=== PATIENT | female | born 1950 | race Caucasian/White ===

== ENCOUNTER 2017-04-14 09:44 | Outpatient (CLI) | payer MEDICARE ==
[2017-04-14 13:51] LABS: BASOPHILS # (AUTO) 0.1 10^3/uL (0.0-0.1); BASOPHILS % (AUTO) 2.2 %; EOSINOPHILS # (AUTO) 0.2 10^3/uL (0.0-0.7); HCT - HEMATOCRIT 36.5 % (37.0-47.0); HGB - HEMOGLOBIN 12.6 g/dL (12.0-16.0); LYMPHOCYTES % (AUTO) 28.9 %; MEAN CORPUSCULAR HEMOGLOBIN 37.2 pg (27.0-31.0); MEAN CORPUSCULAR HGB CONC 34.5 g/dL (32.0-36.0); MEAN CORPUSCULAR VOLUME 107.8 fL (81.0-99.0); MEAN PLATELET VOLUME 10.2 fL (7.9-10.8); MONOCYTES # (AUTO) 0.3 10^3/uL (0.0-1.0); MONOCYTES % (AUTO) 9.1 %; NEUTROPHILS # (AUTO) 1.9 10^3/uL (1.5-6.6); NEUTROPHILS % (AUTO) 54.8 %; RED BLOOD COUNT 3.39 10^6/uL (4.20-5.40); UNCORRECTED WHITE BLOOD COUNT 3.5 x10^3/uL; WHITE BLOOD COUNT 3.5 x10^3/uL (4.8-10.8)
[2017-04-14 14:07] LABS: ALBUMIN/GLOBULIN RATIO 1.5 (1.0-2.2); BILIRUBIN,TOTAL 0.6 mg/dL (0.2-1.0); BUN - BLOOD UREA NITROGEN 12 mg/dL (6-20); CALCIUM 9.1 mg/dL (8.5-10.3); CARBON DIOXIDE - CO2 28 mmol/L (21-32); CHLORIDE 104 mmol/L (101-111); CHOL/HDL RATIO 2.3 (<4.4); CHOLESTEROL 170 mg/dL; CREATININE 0.6 mg/dL (0.4-1.0); GFR - MDRD 99 (>89); GLUCOSE 98 mg/dL (70-100); HDL CHOLESTEROL 74 mg/dL; LDL/HDL RATIO 1.1 (<4.4); SODIUM 138 mmol/L (135-145); TOTAL PROTEIN 7.1 g/dL (6.7-8.2); TRIGLYCERIDES 71 mg/dL; VLDL CHOLESTEROL 14 mg/dL
== END 2017-04-14 23:59 | disposition home or self-care (01) ==
LOC: LAB.WCP 09:44
PROVIDERS: ATTEND Physician Assistant Medical
DX: E78.5 Hyperlipidemia, unspecified (principal); Z78.0 Asymptomatic menopausal state; E03.9 Hypothyroidism, unspecified; I48.91 Unspecified atrial fibrillation; Z79.899 Other long term (current) drug therapy; J44.9 Chronic obstructive pulmonary disease, unspecified
CPT/HCPCS: 36415; 80053; 80061; 84443; 85025

== ENCOUNTER 2017-08-29 11:21 | Outpatient (CLI) | payer MEDICARE ==
--- NOTE | 2017-08-30 17:07 | Mammography Report ---
DIGITAL SCREENING MAMMOGRAM: 08/29/2017 CLINICAL INDICATION: A 67-year-old for screening. COMPARISON: 02/2016, 08/2014, 01/2012. TECHNIQUE: Routine CC and MLO projections were obtained of the breasts. The breasts again demonstrate heterogeneously dense fibroglandular parenchyma bilaterally. Circumscr ibed nodule in the anterior right breast is stable. Coarse and punctate, typically benign calcificat ions are present. No suspicious masses, clustered microcalcifications, or regions of architectural d istortion are identified. IMPRESSION: BENIGN FINDINGS. RECOMMENDATION: ROUTINE ANNUAL SCREENING UNLESS OTHERWISE CLINICALLY INDICATED. BIRADS CATEGORY: 2, BENIGN FINDINGS. STANDARD QUALIFYING STATEMENTS 1. This examination was reviewed with the aid of Computed-Aided Detection (CAD). 2. A negative or benign imaging report should not delay biopsy if clinically suspicious findings are present. Consider surgical consultation if warranted. More than 5% of cancers are not identified b y imaging. 3. Dense breasts may obscure an underlying neoplasm. JOB #: [id number] EXT JOB #:[id number]
== END 2017-08-29 11:22 | disposition home or self-care (01) ==
LOC: DI 11:21
PROVIDERS: ATTEND Physician Assistant Medical
DX: Z12.31 Encounter for screening mammogram for malignant neoplasm of breast (principal)
CPT/HCPCS: 77067

== ENCOUNTER 2017-10-04 10:01 | Outpatient (CLI) | payer MEDICARE ==
--- NOTE | 2017-10-04 14:52 | DEXA Report ---
DEXA SCAN: 10/04/2017 CLINICAL INDICATION: Osteoporosis. TECHNIQUE: Dual energy x-ray absorptiometry (DXA) was performed on a [employer] system. Regions measured are the AP spine, femoral neck, and, if needed, forearm. COMPARISON: 09/30/2016. In accordance with the International Society for Clinical Densitometry (ISCD) guidelines, data from previous exams may be reanalyzed using current recommendations and techniques. This is done to allow a more accurate basis for comparison with the current study. FINDINGS LUMBAR SPINE DATA: REGION BMD (g/cm/cm) T-SCORE Z-SCORE L1 0.847 -2.4 -1.0 L2 0.848 -2.9 -1.5 L3 1.135 -0.5 0.9 L4 1.057 -1.2 0.2 TOTAL 0.985 -1.6 -0.2 NOTE: All evaluable vertebrae are used for classification. HIP DATA: REGION BMD (g/cm/cm) T-SCORE Z-SCORE Neck 0.644 -2.8 -1.4 TOTAL 0.600 -3.2 -2.0 NOTE: The femoral neck or total proximal femur, whichever is lowest, is used for classification. DXA RESULTS SUMMARY: Spine SCAN DATE AGE BMD T-SCORE BMD CHANGE VS BASELINE BMD CHANGE VS PREVIOUS 10[age]04/[age] 0[age]985 -- -0.010 -1.0 09/30/2016 [age] 0[age]995 -- -- -- * Denotes significant change at the 95% confidence level. Denotes dissimilar scan types or analysis methods. DXA RESULTS SUMMARY: Total Hip SCAN DATE AGE BMD T-SCORE BMD CHANGE VS BASELINE BMD CHANGE VS PREVIOUS 10/04/2017 [age] 0.600 -- 0.007 1.2 09/30/2016 [age] 0[age]593 -- -- -- * Denotes significant change at the 95% confidence level. Denotes dissimilar scan types or analysis methods. IMPRESSION 1. THE WHO CLASSIFICATION BASED ON THE INTERNATIONAL REFERENCE STANDARD IS OSTEOPOROSIS AND FRACTURE RISK IS HIGH. 2. THERE HAS BEEN NO STATISTICALLY SIGNIFICANT INTERVAL CHANGE FROM 09/30/2016. RECOMMENDATION: Patients with diagnosis of osteoporosis or osteopenia should have regular bone mineral density assessment. For those eligible for Medicare, routine testing is allowed once every 2 years. Testing frequency can be increased for patients who have rapidly progressing disease or for those who are receiving medical therapy to restore bone mass. COMMENT: World Health Organization (WHO) definitions for osteoporosis and osteopenia: NORMAL BMD: T-score at -1.0 or higher, fracture risk is low. OSTEOPENIA BMD: T-score between -1.0 and -2.5, fracture risk is increased. OSTEOPOROSIS BMD: T-score at -2.5 or lower, fracture risk high. National Osteoporosis Foundation recommends: 1. Obtain adequate dietary calcium (at least 1200 mg per day) and vitamin D (400 -800 international units per day). 2. Participate, as appropriate, in regular weightbearing and muscle- strengthening exercise. 3. Avoid tobacco use and reduce alcohol and caffeine intake. 4. For more detailed information see the website at www.NOF.org. MTDD
== END 2017-10-04 10:02 | disposition home or self-care (01) ==
LOC: DI 10:01
PROVIDERS: ATTEND Physician Assistant Medical
DX: M81.0 Age-related osteoporosis without current pathological fracture (principal)
CPT/HCPCS: 77080

== ENCOUNTER 2017-12-06 08:00 | Outpatient (CLI) | payer MEDICARE | END 2017-12-06 08:01 | disposition home or self-care (01) | LOC: LAB.R 08:00 | PROVIDERS: ATTEND Physician Assistant Medical | DX: N39.0 Urinary tract infection, site not specified (principal) | CPT/HCPCS: 87077; 87086 ==

== ENCOUNTER 2017-12-18 14:30 | Outpatient (CLI) | payer MEDICARE | END 2017-12-18 14:31 | disposition home or self-care (01) | LOC: LAB.WCP 14:30 | PROVIDERS: ATTEND Family Medicine | DX: N39.0 Urinary tract infection, site not specified (principal) | CPT/HCPCS: 87077; 87086 ==

== ENCOUNTER 2017-12-27 11:21 | Outpatient (CLI) | payer MEDICARE ==
[2017-12-27 19:07] LABS: BILIRUBIN,URINE NEGATIVE (NEGATIVE); GLUCOSE, URINE (UA) NEGATIVE (NEGATIVE); KETONES,URINE (UA) NEGATIVE (NEGATIVE); LEUKOCYTE ESTERASE, URINE NEGATIVE (NEGATIVE); NITRITE,URINE NEGATIVE (NEGATIVE); OCCULT BLOOD,URINE NEGATIVE (NEGATIVE); PROTEIN,URINE NEGATIVE (NEGATIVE); UROBILINOGEN,URINE 0.2 (NORMAL) E.U./dL (NORMAL)
[2017-12-27 19:18] LABS: BACTERIA,URINE Few /HPF (None Seen); CLARITY,URINE CLEAR (CLEAR); RBC,URINE 0-5 /HPF (0-5); SQUAMOUS EPITHELIAL CELL,UR RARE Squamous (<= Few)
== END 2017-12-27 11:22 | disposition home or self-care (01) ==
LOC: LAB.WCP 11:21
PROVIDERS: ATTEND Family Medicine
DX: N39.0 Urinary tract infection, site not specified (principal)
CPT/HCPCS: 81001; 87086

== ENCOUNTER 2018-01-10 10:10 | Outpatient (CLI) | payer MEDICARE | END 2018-01-10 10:11 | disposition home or self-care (01) | LOC: LAB.WCP 10:10 | PROVIDERS: ATTEND Family Medicine | DX: N39.0 Urinary tract infection, site not specified (principal) | CPT/HCPCS: 87086 ==

== ENCOUNTER 2018-02-02 08:00 | Outpatient (CLI) | payer MEDICARE ==
[2018-02-02 14:10] LABS: BILIRUBIN,URINE NEGATIVE (NEGATIVE); CLARITY,URINE CLEAR (CLEAR); GLUCOSE, URINE (UA) NEGATIVE (NEGATIVE); KETONES,URINE (UA) NEGATIVE (NEGATIVE); LEUKOCYTE ESTERASE, URINE SMALL (NEGATIVE); NITRITE,URINE POSITIVE (NEGATIVE); OCCULT BLOOD,URINE NEGATIVE (NEGATIVE); PROTEIN,URINE NEGATIVE (NEGATIVE); UROBILINOGEN,URINE 0.2 (NORMAL) E.U./dL (NORMAL)
[2018-02-02 14:19] LABS: BACTERIA,URINE Many /HPF (None Seen); RBC,URINE 0-5 /HPF (0-5); SQUAMOUS EPITHELIAL CELL,UR RARE Squamous (<= Few)
== END 2018-02-02 08:01 | disposition home or self-care (01) ==
LOC: LAB.WCP 08:00
PROVIDERS: ATTEND Physician Assistant
DX: R82.90 Unspecified abnormal findings in urine (principal)
CPT/HCPCS: 81001; 87077; 87086

== ENCOUNTER 2018-04-06 08:00 | Outpatient (CLI) | payer MEDICARE ==
[2018-04-06 13:12] LABS: BASOPHILS # (AUTO) 0.1 10^3/uL (0.0-0.1); BASOPHILS % (AUTO) 1.7 %; EOSINOPHILS # (AUTO) 0.3 10^3/uL (0.0-0.7); EOSINOPHILS % (AUTO) 7.5 %; HGB - HEMOGLOBIN 13.1 g/dL (12.0-16.0); LYMPHOCYTES # (AUTO) 1.1 10^3/uL (1.5-3.5); LYMPHOCYTES % (AUTO) 28.1 %; MEAN CORPUSCULAR HEMOGLOBIN 32.2 pg (27.0-31.0); MEAN CORPUSCULAR HGB CONC 33.6 g/dL (32.0-36.0); MEAN CORPUSCULAR VOLUME 95.9 fL (81.0-99.0); MEAN PLATELET VOLUME 9.5 fL (7.9-10.8); MONOCYTES # (AUTO) 0.4 10^3/uL (0.0-1.0); MONOCYTES % (AUTO) 9.1 %; NEUTROPHILS # (AUTO) 2.1 10^3/uL (1.5-6.6); NEUTROPHILS % (AUTO) 53.6 %; PLT - PLATELET COUNT 212 10^3/uL (130-450); RED BLOOD COUNT 4.06 10^6/uL (4.20-5.40); RED CELL DISTRIBUTION WIDTH 14.9 % (12.0-15.0)
[2018-04-06 13:40] LABS: ALBUMIN 4.1 g/dL (3.2-5.5); ALBUMIN/GLOBULIN RATIO 1.5 (1.0-2.2); ALKALINE PHOSPHATASE 48 IU/L (42-121); ALT ALANINE AMINOTRANSFERASE 24 IU/L (10-60); AST ASPARTATE AMINOTRANSFERASE 25 IU/L (10-42); BILIRUBIN,TOTAL 0.7 mg/dL (0.2-1.0); BUN - BLOOD UREA NITROGEN 11 mg/dL (6-20); CARBON DIOXIDE - CO2 27 mmol/L (21-32); CHLORIDE 107 mmol/L (101-111); CHOL/HDL RATIO 2.5 (<4.4); CHOLESTEROL 190 mg/dL; CREATININE 0.8 mg/dL (0.4-1.0); GFR - MDRD 71 (>89); GLUCOSE 97 mg/dL (70-100); HDL CHOLESTEROL 76 mg/dL; LDL CHOLESTEROL,CALCULATED 102 mg/dL; LDL/HDL RATIO 1.3 (<4.4); SODIUM 141 mmol/L (135-145); TOTAL PROTEIN 6.9 g/dL (6.7-8.2); VLDL CHOLESTEROL 12 mg/dL
== END 2018-04-06 08:01 | disposition home or self-care (01) ==
LOC: LAB.WCP 08:00
PROVIDERS: ATTEND Physician Assistant Medical
DX: J44.9 Chronic obstructive pulmonary disease, unspecified (principal); I48.91 Unspecified atrial fibrillation; E78.5 Hyperlipidemia, unspecified; E03.9 Hypothyroidism, unspecified
CPT/HCPCS: 36415; 80053; 80061; 83721; 84443; 85025

== ENCOUNTER 2018-05-09 08:00 | Outpatient (CLI) | payer MEDICARE ==
[2018-05-09 18:50] LABS: BILIRUBIN,URINE NEGATIVE (NEGATIVE); GLUCOSE, URINE (UA) NEGATIVE (NEGATIVE); KETONES,URINE (UA) NEGATIVE (NEGATIVE); LEUKOCYTE ESTERASE, URINE SMALL (NEGATIVE); NITRITE,URINE NEGATIVE (NEGATIVE); OCCULT BLOOD,URINE NEGATIVE (NEGATIVE); PH,URINE 6.5 PH (5.0-7.5); PROTEIN,URINE NEGATIVE (NEGATIVE); UROBILINOGEN,URINE 0.2 (NORMAL) E.U./dL (NORMAL)
[2018-05-09 19:06] LABS: CLARITY,URINE CLEAR (CLEAR)
[2018-05-09 19:07] LABS: BACTERIA,URINE None Seen /HPF (None Seen); MUCUS,URINE Few Strands; RBC,URINE 0-5 /HPF (0-5); SQUAMOUS EPITHELIAL CELL,UR RARE Squamous (<= Few)
== END 2018-05-09 08:01 | disposition home or self-care (01) ==
LOC: LAB.WCP 08:00
PROVIDERS: ATTEND Physician Assistant Medical
DX: N39.0 Urinary tract infection, site not specified (principal)
CPT/HCPCS: 81001; 87086

== ENCOUNTER 2018-07-29 09:17 | Emergency (ER) | payer MEDICARE ==
[2018-07-29] MEDS ORDERED: DEXAMETHASONE 10 MG/ML VIAL PO STA (09:49)
[2018-07-29] MEDS ORDERED: HYDROmorphone 1 MG/ML CARPUJECT IM STA (09:49)
[2018-07-29] MEDS ORDERED: ONDANSETRON ODT 4 MG TABLET TL STA (09:49)
[2018-07-29] MEDS ORDERED: CHERRY SYRUP 10 ML UDC PO ONE (09:52)
--- NOTE | 2018-07-29 09:52 | ED Physician Documentation ---
PD HPI BACK PAIN - Stated complaint Stated Complaint: L SIDE LEG PX - Chief complaint Chief Complaint: Back Pain - History obtained from History obtained from: Patient, Family - History of Present Illness Timing - onset: How many days ago (2) Timing - duration: Days (2) Timing - details: Gradual onset, Still present Location: Lower, Left Quality: Pain, Spasm, Sharp, Similar to prior episodes Associated symptoms: Numbness. No: Fever, Weakness, Incontinent of urine, Unable to urinate, Hematuria, Incontinent of stool Improves with: Rest Worsened by: Movement Contributing factors: Other (standing on uneven ground/walking) Similar symptoms before: Diagnosis (sciatica) Recently seen: Clinic - Additional information Additional information: 68-year-old female with a remote tailbone injury has had sciatica since her early 20s. She will have exacerbation of her symptoms if she is on her feet for too long. She indicates that this week she was on her feet quite a bit on Monday and then went walking on . She did go into see the chiropractor as well. She was much worse following the activity. This morning she is unable to get relief of her pain she has 10 out of 10 pain and radiation of the pain down her leg. Review of Systems Constitutional: denies: Fever Eyes: denies: Decreased vision Ears: denies: Ear pain Nose: denies: Congestion Throat: denies: Sore throat Cardiac: denies: Chest pain / pressure, Palpitations Respiratory: denies: Dyspnea, Cough GI: reports: Constipation. denies: Abdominal Pain, Nausea, Vomiting : denies: Dysuria, Frequency Skin: denies: Rash Musculoskeletal: reports: Back pain, Extremity pain. denies: Neck pain Neurologic: reports: Numbness. denies: Generalized weakness, Focal weakness PD PAST MEDICAL HISTORY - Present Medications Home Medications: Ambulatory Orders Medication Instructions Recorded Confirmed Acetaminophen [Tylenol Extra 07/29/18 Strength] Atorvastatin [Lipitor] 07/29/18 Calcium Carbonate/Vitamin D3 07/29/18 [Calcium 600-Vit D3 400 Tablet] Cetirizine [ZyrTEC] 07/29/18 Ciclopirox [Pen[place]] 07/29/18 Cyanocobalamin (Vitamin B-12) 07/29/18 [Vitamin B-12] Cyclobenzaprine [Flexeril] 10 mg PO TID PRN #20 tablet 07/29/18 Diltiazem HCl [Diltiazem ER] 07/29/18 Flecainide [Tambocar] 07/29/18 Fluticasone [Flonase] 07/29/18 Guaifenesin/Dextromethorphan 07/29/18 [Mucinex Dm ER 1,200-60 mg Tab] HYDROcod/ACETAM 5/325 [[place] 5/325] 1 - 2 ea PO Q6H PRN #15 tablet 07/29/18 Lactobacillus Acidophilus 07/29/18 [Probiotic Acidophilus] Levothyroxine [Synthroid] 07/29/18 Melatonin 07/29/18 Warfarin [Coumadin] 07/29/18 tiZANidine [Zanaflex] 2 mg PO TID PRN 07/29/18 07/29/18 - Allergies Allergies/Adverse Reactions: Allergies Allergy/AdvReac Type Severity Reaction Status Date / Time Sulfa (Sulfonamide AdvReac Anxiety Verified 07/29/18 09:36 Antibiotics) PD ED PE NORMAL - Vitals Vital signs reviewed: Yes (normal ) - General General: Alert and oriented X 3, No acute distress, Well developed/nourished - HEENT HEENT: Atraumatic, PERRL, EOMI - Respiratory Respiratory: No respiratory distress - Back Back: No CVA TTP, Other (There is midline tenderness to the lower lumbar spine and sacrum and radiation of tenderness to the left sciatic notch) - Derm Derm: Normal color, Warm and dry, No rash - Extremities Extremities: No deformity, No edema - Neuro Neuro: Alert and oriented X 3, elevator inspector 2-12 intact, No motor deficit, No sensory deficit, Normal speech Eye Opening: Spontaneous Motor: Obeys Commands Verbal: Oriented GCS Score: 15 - Psych Psych: Normal mood, Normal affect Results - Vitals Vitals: Vital Signs - 24 hr 07/29/18 09:30 Temperature 36.2 C L Heart Rate 88 Respiratory 16 Rate Blood Pressure 116/67 O2 Saturation 99 Oxygen O2 Source Room air PD MEDICAL DECISION MAKING - ED course Complexity details: considered differential, d/w patient, d/w family ED course: 68-year-old female with a long history of sciatica has developed worsening of her symptoms after being on her feet for longer than she is used to. She has acute exacerbation of chronic pain and she is administered dexamethasone 10 mg orally and treated for pain of a 10 out of 10 in nature with the use of a milligram of Dilaudid IM and 4 mg of Zofran sublingual.. - Sepsis Event Vital Signs: Vital Signs - 24 hr 07/29/18 09:30 Temperature 36.2 C L Heart Rate 88 Respiratory 16 Rate Blood Pressure 116/67 O2 Saturation 99 Oxygen O2 Source Room air Departure - Departure Disposition: Home, Self Care Clinical Impression: Sciatica Qualifiers: Laterality: left Qualified Code(s): M54.32 - Sciatica, left side Condition: Stable Instructions: ED Sciatica Follow-Up: Paula Kaminski PA-C [Primary Care Provider] - Prescriptions: Cyclobenzaprine [Flexeril] 10 mg PO TID PRN #20 tablet PRN Reason: Spasms HYDROcod/ACETAM 5/325 [[place] 5/325] 1 - 2 ea PO Q6H PRN #15 tablet PRN Reason: Pain
[2018-07-29 10:19] VITALS: BP 111/65
== END 2018-07-29 10:19 | disposition home or self-care (01) ==
LOC: ED 09:17
DX: M54.32 Sciatica, left side (principal)
CPT/HCPCS: 85610; 96372; 99283; A9270; J1170; Q0162

== ENCOUNTER 2018-08-14 11:56 | Outpatient (CLI) | payer MEDICARE ==
[2018-08-14 13:01] LABS: ALBUMIN 4.2 g/dL (3.2-5.5); ALBUMIN/GLOBULIN RATIO 1.6 (1.0-2.2); BILIRUBIN,TOTAL 0.4 mg/dL (0.2-1.0); CREATININE 0.6 mg/dL (0.4-1.0); TOTAL PROTEIN 6.9 g/dL (6.7-8.2)
== END 2018-08-14 11:57 | disposition home or self-care (01) ==
LOC: LAB 11:56
PROVIDERS: ATTEND Internal Medicine Gastroenterology
DX: Z79.01 Long term (current) use of anticoagulants (principal); G47.30 Sleep apnea, unspecified; R85.9 Unspecified abnormal finding in specimens from digestive organs and abdominal cavity; I48.91 Unspecified atrial fibrillation
CPT/HCPCS: 36415; 80053

== ENCOUNTER 2018-08-16 06:10 | Day surgery (SDC) | payer MEDICARE ==
[2018-08-16] MEDS ORDERED: SODIUM CHLORIDE 0.9% 0 ML ONE (06:35)
[2018-08-16 07:04] LABS: INR 2.8 (0.8-1.2); PT - PROTHROMBIN TIME 30.8 secs (9.9-12.6)
--- NOTE | 2018-08-16 07:04 | ANESTHESIA ---
Pre-Anesthesia VS, & Labs - Diagnosis positive cologuard - Procedure colonoscopy Vital Signs: Temp Pulse Resp BP Pulse Ox 36.4 C L 88 16 107/53 L 97 08/16/18 06:43 08/16/18 06:43 08/16/18 06:43 08/16/18 06:43 08/16/18 06:43 Height 5 ft 7 in Weight (kg) 66.7 kg Body Mass Index 24.4 - NPO >8 hours - Is Patient ?: Not Applicable - Lab Results Lab results reviewed: Yes Home Medications and Allergies Home Medications: Ambulatory Orders Medication Instructions Recorded Confirmed Cyclobenzaprine [Flexeril] 10 mg PO TID PRN #20 tablet 07/29/18 08/09/18 HYDROcod/ACETAM 5/325 [[place] 5/325] 1 - 2 ea PO Q6H PRN #15 tablet 07/29/18 08/09/18 Atorvastatin [Lipitor] 10 mg PO DAILY 08/09/18 08/09/18 Cetirizine [ZyrTEC] 10 mg PO DAILY 08/09/18 08/09/18 Flecainide [Tambocar] 50 mg PO DAILY MDD 2 08/09/18 08/09/18 Fluticasone [Flonase] 2 sprays GIANNA BID 08/09/18 08/09/18 Fluticasone/Salmeterol [Advair Hfa 2 puffs IH BID 08/09/18 08/09/18 115-21 Mcg Inhaler] Levothyroxine [Synthroid] 88 mcg PO QDAC 08/09/18 08/09/18 Warfarin Sodium [Coumadin] 7.5 mg PO .QTUES.QTHUR.QSAT 08/09/18 08/09/18 Warfarin Sodium [Coumadin] 10 mg PO .MON.WED.FRI.SUN 08/09/18 08/09/18 diltiaZEM CD [Cardizem Cd] 180 mg PO DAILY 08/09/18 08/09/18 Atorvastatin [Lipitor] 10 mg PO DAILY 08/09/18 Cetirizine [ZyrTEC] 10 mg PO DAILY 08/09/18 Flecainide [Tambocar] 50 mg PO DAILY MDD 2 08/09/18 Fluticasone [Flonase] 2 sprays GIANNA BID 08/09/18 Fluticasone/Salmeterol [Advair Hfa 115-21 Mcg Inhaler] 2 puffs IH BID 08/09/18 Levothyroxine [Synthroid] 88 mcg PO QDAC 08/09/18 Warfarin Sodium [Coumadin] 7.5 mg PO .QTUES.QTHUR.QSAT 08/09/18 Warfarin Sodium [Coumadin] 10 mg PO .MON.WED.FRI.SUN 08/09/18 diltiaZEM CD [Cardizem Cd] 180 mg PO DAILY 08/09/18 Allergies/Adverse Reactions: Allergies Allergy/AdvReac Type Severity Reaction Status Date / Time Sulfa (Sulfonamide AdvReac Anxiety Verified 08/09/18 10:57 Antibiotics) Anes History & Medical History - Anesthetic History Anesthesia Complications: reports: No previous complications Family history of Anesthesia Complications: Denies Family history of Malignant Hyperthermia: Denies - Medical History Cardiovascular: reports: High cholesterol, Atrial fibrillation Pulmonary: reports: Asthma, COPD, Sleep apnea Gastrointestinal: reports: GI bleed Urinary: reports: None Musculoskeletal: reports: Osteoarthritis, Osteoporosis, Chronic back pain Endocrine/Autoimmune: reports: HyPOthyroidism Skin: reports: None Smoking Status: Never smoker - Surgical History General: Colonoscopy Eyes Ears Nose Throat (EENT): Cataracts, Other Exam General: Alert, Oriented x3 Dental: Dentures full Upper, Dentures full Lower Mouth Openin Fingerbreadth Neck Mobility: Normal Mallampati classification: II Thyromental Distance: greater than 6 cm Respiratory: Lungs clear Cardiovascular: Normal S1, Normal S2 Mental/Cognitive Status: Alert/Oriented X3, Normal for patient Cognitive Status: Within normal limits Plan Anesthesia Type: MAC Consent for Procedure(s) Verified and Reviewed: Yes Code Status: Attempt Resuscitation ASA classification: 3-Severe systemic disease Is this case an emergency?: No
[2018-08-16] MEDS ORDERED: LACTATED RINGERS 1,000 ML IV ONE (07:18)
[2018-08-16] MEDS ORDERED: PROPOFOL 200 MG/20 ML VIAL IVP ONE (08:08)
[2018-08-16] MEDS ORDERED: LIDOCAINE-MPF 2% 5 ML VIAL IM ONE (08:08)
[2018-08-16 08:32] VITALS: BP 110/52
== END 2018-08-16 06:11 | disposition home or self-care (01) ==
LOC: SDS 06:10
PROVIDERS: ATTEND Internal Medicine Gastroenterology
PROC: 0DBN8ZZ Excision of Sigmoid Colon, Via Natural or Artificial Opening Endoscopic (ICD-10-PCS; principal; 2018-08-16 07:30)
DX: R19.5 Other fecal abnormalities (principal); D12.5 Benign neoplasm of sigmoid colon; R19.4 Change in bowel habit; G47.30 Sleep apnea, unspecified; I48.91 Unspecified atrial fibrillation; J45.909 Unspecified asthma, uncomplicated; J44.9 Chronic obstructive pulmonary disease, unspecified; E78.5 Hyperlipidemia, unspecified; Z79.01 Long term (current) use of anticoagulants
CPT/HCPCS: 36415; 45380; 85610; J7120

== ENCOUNTER 2019-02-13 08:00 | Outpatient (CLI) | payer MEDICARE | END 2019-02-13 23:59 | disposition home or self-care (01) | LOC: LAB.WCP 08:00 | PROVIDERS: ATTEND Physician Assistant Medical | DX: I48.91 Unspecified atrial fibrillation (principal); Z79.01 Long term (current) use of anticoagulants ==

== ENCOUNTER 2019-03-29 08:00 | Outpatient (CLI) | payer MEDICARE ==
[2019-03-29 12:33] LABS: INR 2.9 (0.8-1.2); PT - PROTHROMBIN TIME 32.2 secs (9.9-12.6)
[2019-03-29 12:58] LABS: ALBUMIN 3.8 g/dL (3.2-5.5); ALBUMIN/GLOBULIN RATIO 1.4 (1.0-2.2); BILIRUBIN,TOTAL 0.4 mg/dL (0.2-1.0); CALCIUM 8.6 mg/dL (8.5-10.3); CREATININE 0.7 mg/dL (0.4-1.0); TOTAL PROTEIN 6.5 g/dL (6.7-8.2)
== END 2019-03-29 23:59 | disposition home or self-care (01) ==
LOC: LAB.WCP 08:00
PROVIDERS: ATTEND Internal Medicine Gastroenterology
DX: R19.5 Other fecal abnormalities (principal); I48.91 Unspecified atrial fibrillation; G47.30 Sleep apnea, unspecified; Z79.01 Long term (current) use of anticoagulants
CPT/HCPCS: 36415; 80053; 85610

== ENCOUNTER 2019-04-12 08:00 | Outpatient (CLI) | payer MEDICARE | END 2019-04-12 23:59 | disposition home or self-care (01) | LOC: LAB.WCP 08:00 | PROVIDERS: ATTEND Family Medicine | DX: I48.91 Unspecified atrial fibrillation (principal); Z79.01 Long term (current) use of anticoagulants ==

== ENCOUNTER 2019-05-28 08:00 | Outpatient (CLI) | payer MEDICARE | END 2019-05-28 08:01 | disposition home or self-care (01) | LOC: LAB.WCP 08:00 | PROVIDERS: ATTEND Physician Assistant Medical | DX: I48.91 Unspecified atrial fibrillation (principal); Z79.01 Long term (current) use of anticoagulants ==

== ENCOUNTER 2019-07-09 08:00 | Outpatient (CLI) | payer MEDICARE | END 2019-07-09 23:59 | disposition home or self-care (01) | LOC: LAB.WCP 08:00 | PROVIDERS: ATTEND Physician Assistant | DX: I48.91 Unspecified atrial fibrillation (principal) ==

== ENCOUNTER 2019-08-06 08:00 | Outpatient (CLI) | payer MEDICARE | END 2019-08-06 23:59 | disposition home or self-care (01) | LOC: LAB.WCP 08:00 | PROVIDERS: ATTEND Physician Assistant Medical | DX: I48.91 Unspecified atrial fibrillation (principal); Z79.01 Long term (current) use of anticoagulants ==

== ENCOUNTER 2019-10-10 09:46 | Outpatient (CLI) | payer MEDICARE ==
--- NOTE | 2019-10-11 09:25 | Mammography Report ---
Reason: SCREENING MAMMOGRAM Procedure Date: 10/10/2019 Accession Number: [id number] / [id number] Procedure: ABE - Screening Mammo w/Andrea CPT Code: Final Report FULL RESULT: EXAM: Screening Mammo w/Andrea DATE: 10/10/2019 10:12 AM CLINICAL HISTORY: Screening encounter. TECHNIQUE: (B) - Bilateral CC, laterally exaggerated CC, MLO views were obtained. COMPARISON: 08/29/2017 through 02/14/2012. PARENCHYMAL PATTERN: (D) - The breast(s) demonstrate(s) heterogeneously dense fibroglandular parenchyma. FINDINGS: There are coarse typically benign calcifications as well as typically benign vascular calcifications. A right breast inferomedial retroareolar isodense nodule approximately 1.5 cm from the nipple demonstrates greater than 2 year stability with benign. This has reportedly been previously sonographically characterized as a simple cyst, mammographic appearance is compatible. There are no suspicious masses, calcifications, or areas of distortion. IMPRESSION: Benign findings. BI-RADS category 2. RECOMMENDATION: (ANNUAL) - Recommend routine annual screening mammography. BI-RADS CATEGORY: (2) - Benign Findings. STANDARD QUALIFYING STATEMENTS: 1. This examination was not reviewed with the aid of Computer-Aided Detection (CAD). 2. A negative or benign imaging report should not preclude biopsy if clinically suspicious findings are present. 3. Dense breasts may obscure an underlying neoplasm. 4. This examination was reviewed with the aid of 3D breast imaging (tomosynthesis).
== END 2019-10-10 09:47 | disposition home or self-care (01) ==
LOC: DI 09:46
DX: Z12.31 Encounter for screening mammogram for malignant neoplasm of breast (principal)
CPT/HCPCS: 77063; 77067

== ENCOUNTER 2019-12-26 08:00 | Outpatient (CLI) | payer MEDICARE | END 2019-12-26 23:59 | disposition home or self-care (01) | LOC: LAB.WCP 08:00 | PROVIDERS: ATTEND Physician Assistant Medical | DX: Z79.01 Long term (current) use of anticoagulants (principal); I48.91 Unspecified atrial fibrillation ==

== ENCOUNTER 2020-01-23 08:00 | Outpatient (CLI) | payer MEDICARE | END 2020-01-23 23:59 | disposition home or self-care (01) | LOC: LAB.WCP 08:00 | PROVIDERS: ATTEND Physician Assistant Medical | DX: I48.91 Unspecified atrial fibrillation (principal); Z79.01 Long term (current) use of anticoagulants ==

== ENCOUNTER 2020-02-20 08:00 | Outpatient (CLI) | payer MEDICARE | END 2020-02-20 23:59 | disposition home or self-care (01) | LOC: LAB.WCP 08:00 | PROVIDERS: ATTEND Physician Assistant Medical | DX: I48.91 Unspecified atrial fibrillation (principal); Z79.01 Long term (current) use of anticoagulants ==

== ENCOUNTER 2020-03-19 08:00 | Outpatient (CLI) | payer MEDICARE | END 2020-03-19 23:59 | disposition home or self-care (01) | LOC: LAB.WCP 08:00 | PROVIDERS: ATTEND Physician Assistant Medical | DX: I48.91 Unspecified atrial fibrillation (principal); Z79.01 Long term (current) use of anticoagulants ==

== ENCOUNTER 2020-04-10 07:38 | Outpatient (CLI) | payer MEDICARE ==
[2020-04-10 13:28] LABS: BASOPHILS # (AUTO) 0.1 10^3/uL (0.0-0.1); BASOPHILS % (AUTO) 1.1 %; EOSINOPHILS # (AUTO) 0.3 10^3/uL (0.0-0.7); EOSINOPHILS % (AUTO) 6.6 %; LYMPHOCYTES # (AUTO) 1.7 10^3/uL (1.5-3.5); LYMPHOCYTES % (AUTO) 35.9 %; MEAN CORPUSCULAR HEMOGLOBIN 30.9 pg (27.0-31.0); MEAN CORPUSCULAR HGB CONC 31.8 g/dL (32.0-36.0); MEAN CORPUSCULAR VOLUME 97.1 fL (81.0-99.0); MEAN PLATELET VOLUME 11.7 fL (7.9-10.8); MONOCYTES # (AUTO) 0.4 10^3/uL (0.0-1.0); MONOCYTES % (AUTO) 8.9 %; NEUTROPHILS # (AUTO) 2.2 10^3/uL (1.5-6.6); NEUTROPHILS % (AUTO) 47.3 %; PLT - PLATELET COUNT 219 10^3/uL (130-450); RED BLOOD COUNT 4.21 10^6/uL (4.20-5.40); RED CELL DISTRIBUTION WIDTH 14.8 % (12.0-15.0); WHITE BLOOD COUNT 4.7 x10^3/uL (4.8-10.8)
[2020-04-10 14:05] LABS: ALBUMIN 3.7 g/dL (3.2-5.5); ALBUMIN/GLOBULIN RATIO 1.3 (1.0-2.2); ALKALINE PHOSPHATASE 58 IU/L (42-121); ALT ALANINE AMINOTRANSFERASE 17 IU/L (10-60); AST ASPARTATE AMINOTRANSFERASE 16 IU/L (10-42); BILIRUBIN,TOTAL 0.6 mg/dL (0.2-1.0); BUN - BLOOD UREA NITROGEN 13 mg/dL (6-20); CALCIUM 8.9 mg/dL (8.5-10.3); CARBON DIOXIDE - CO2 27 mmol/L (21-32); CHLORIDE 105 mmol/L (101-111); CHOL/HDL RATIO 2.6 (<4.4); CHOLESTEROL 177 mg/dL; CREATININE 0.7 mg/dL (0.4-1.0); GLUCOSE 102 mg/dL (70-100); HDL CHOLESTEROL 67 mg/dL; LDL CHOLESTEROL,CALCULATED 97 mg/dL; LDL/HDL RATIO 1.4 (<4.4); SODIUM 140 mmol/L (135-145); TOTAL PROTEIN 6.6 g/dL (6.7-8.2); VLDL CHOLESTEROL 13 mg/dL
[2020-04-10 14:58] LABS: FREE T4 (FREE THYROXINE) 1.01 ng/dL (0.58-1.64)
== END 2020-04-10 23:59 | disposition home or self-care (01) ==
LOC: LAB.WCP 07:38
PROVIDERS: ATTEND Physician Assistant Medical
DX: I48.91 Unspecified atrial fibrillation (principal); E78.5 Hyperlipidemia, unspecified; E03.9 Hypothyroidism, unspecified; M89.9 Disorder of bone, unspecified
CPT/HCPCS: 36415; 80053; 80061; 83721; 84439; 84443; 85025

== ENCOUNTER 2020-05-14 08:00 | Outpatient (CLI) | payer MEDICARE | END 2020-05-14 23:59 | disposition home or self-care (01) | LOC: LAB.WCP 08:00 | PROVIDERS: ATTEND Physician Assistant Medical | DX: I48.91 Unspecified atrial fibrillation (principal); Z79.01 Long term (current) use of anticoagulants ==

== ENCOUNTER 2020-05-27 08:00 | Outpatient (CLI) | payer MEDICARE | END 2020-05-27 23:59 | disposition home or self-care (01) | LOC: LAB.WCP 08:00 | PROVIDERS: ATTEND Physician Assistant Medical | DX: I48.91 Unspecified atrial fibrillation (principal); Z79.01 Long term (current) use of anticoagulants ==

== ENCOUNTER 2020-06-05 10:31 | Outpatient (CLI) | payer MEDICARE | END 2020-06-05 23:59 | disposition home or self-care (01) | LOC: LAB.WCP 10:31 | PROVIDERS: ATTEND Physician Assistant Medical | DX: E03.9 Hypothyroidism, unspecified (principal) | CPT/HCPCS: 36415; 84443 ==

== ENCOUNTER 2020-06-09 08:00 | Outpatient (CLI) | payer MEDICARE | END 2020-06-09 23:59 | disposition home or self-care (01) | LOC: LAB.WCP 08:00 | PROVIDERS: ATTEND Physician Assistant Medical | DX: I48.91 Unspecified atrial fibrillation (principal); Z79.01 Long term (current) use of anticoagulants ==

== ENCOUNTER 2020-06-30 08:00 | Outpatient (CLI) | payer MEDICARE | END 2020-06-30 23:59 | disposition home or self-care (01) | LOC: LAB.WCP 08:00 | PROVIDERS: ATTEND Physician Assistant Medical | DX: I48.91 Unspecified atrial fibrillation (principal); Z79.01 Long term (current) use of anticoagulants ==

== ENCOUNTER 2020-07-14 08:00 | Outpatient (CLI) | payer MEDICARE | END 2020-07-14 23:59 | disposition home or self-care (01) | LOC: LAB.WCP 08:00 | PROVIDERS: ATTEND Physician Assistant Medical | DX: I48.91 Unspecified atrial fibrillation (principal); Z79.01 Long term (current) use of anticoagulants ==

== ENCOUNTER 2020-08-11 08:00 | Outpatient (CLI) | payer MEDICARE | END 2020-08-11 23:59 | disposition home or self-care (01) | LOC: LAB.WCP 08:00 | PROVIDERS: ATTEND Physician Assistant Medical | DX: I48.91 Unspecified atrial fibrillation (principal); Z79.01 Long term (current) use of anticoagulants ==

== ENCOUNTER 2020-09-08 08:00 | Outpatient (CLI) | payer MEDICARE | END 2020-09-08 23:59 | disposition home or self-care (01) | LOC: LAB.WCP 08:00 | PROVIDERS: ATTEND Physician Assistant Medical | DX: Z79.01 Long term (current) use of anticoagulants (principal) ==

== ENCOUNTER 2020-09-28 08:38 | Outpatient (CLI) | payer MEDICARE ==
[2020-09-28 13:14] LABS: BUN - BLOOD UREA NITROGEN 9 mg/dL (6-20); CARBON DIOXIDE - CO2 27 mmol/L (21-32); CHLORIDE 100 mmol/L (101-111); CHOL/HDL RATIO 2.8 (<4.4); CHOLESTEROL 243 mg/dL; CREATININE 0.7 mg/dL (0.4-1.0); GLUCOSE 89 mg/dL (70-100); HDL CHOLESTEROL 87 mg/dL; LDL CHOLESTEROL,CALCULATED 142 mg/dL; LDL/HDL RATIO 1.6 (<4.4); SODIUM 136 mmol/L (135-145); VLDL CHOLESTEROL 14 mg/dL
== END 2020-09-28 23:59 | disposition home or self-care (01) ==
LOC: LAB.WCP 08:38
PROVIDERS: ATTEND Physician Assistant Medical
DX: E03.9 Hypothyroidism, unspecified (principal); E78.5 Hyperlipidemia, unspecified; Z79.01 Long term (current) use of anticoagulants
CPT/HCPCS: 36415; 80048; 80061; 83721; 84443

== ENCOUNTER 2020-10-07 08:00 | Outpatient (CLI) | payer MEDICARE | END 2020-10-07 23:59 | disposition home or self-care (01) | LOC: LAB.WCP 08:00 | PROVIDERS: ATTEND Physician Assistant Medical | DX: Z79.01 Long term (current) use of anticoagulants (principal) ==

== ENCOUNTER 2020-11-03 08:00 | Outpatient (CLI) | payer MEDICARE | END 2020-11-03 23:59 | disposition home or self-care (01) | LOC: LAB.WCP 08:00 | PROVIDERS: ATTEND Physician Assistant Medical | DX: Z79.01 Long term (current) use of anticoagulants (principal) ==

== ENCOUNTER 2020-11-04 09:32 | Outpatient (CLI) | payer MEDICARE ==
--- NOTE | 2020-11-04 17:41 | DEXA Report ---
PROCEDURE: Dexa Spine and/or Hip INDICATIONS: POSTMENOPAUSAL TECHNIQUE: Dual energy x-ray absorptiometry (DXA) was performed on a [employer] System. Regions measur ed are the AP Spine, femoral neck, and if needed forearm. COMPARISON: 10/04/2017 and 09/30/2016. FINDINGS: Lumbar Spine: Bone Mineral Density 0.973 g/cm/cm,T score -1.7, osteopenia Left Hip: Bone Mineral Density 0.574 g/cm/cm,T score -3.4, osteoporosis Left Femoral Neck: Bone Mineral Density 0.600 g/cm/cm, T score -3.2, osteoporosis (T score greater or equal to -1.0: NORMAL) (T score from -1.1 to -2.4: OSTEOPENIA) (T score less than or equal to -2.5 to: OSTEOPOROSIS) Impression: Osteoporosis with 4.3% decrease in bone marrow density in the interval since prior exam o btained 10/04/2017. Patients with diagnosis of osteoporosis or osteopenia should have regular bone mineral density assess ment. For those eligible for Medicare, routine testing is allowed once every 2 years. Testing frequ ency can be increased for patients who have rapidly progressing disease or for those who are receivin g medical therapy to restore bone mass. Reviewed by: Kaela Hodgson MD, PhD on 11/04/2020 5:39 PM PST Approved by: Kaela Hodgson MD, PhD on 11/04/2020 5:39 PM PST Station ID: [id number]
== END 2020-11-04 09:33 | disposition home or self-care (01) ==
LOC: DI 09:32
PROVIDERS: ATTEND Physician Assistant Medical
DX: M81.0 Age-related osteoporosis without current pathological fracture (principal); Z78.0 Asymptomatic menopausal state

== ENCOUNTER 2021-02-24 08:00 | Outpatient (CLI) | payer MEDICARE | END 2021-02-24 23:59 | disposition home or self-care (01) | LOC: LAB.N 08:00 | PROVIDERS: ATTEND Physician Assistant Medical | DX: I48.91 Unspecified atrial fibrillation (principal); Z79.01 Long term (current) use of anticoagulants ==

== ENCOUNTER 2021-03-05 08:00 | Outpatient (CLI) | payer MEDICARE | END 2021-03-05 23:59 | disposition home or self-care (01) | LOC: LAB.N 08:00 | PROVIDERS: ATTEND Physician Assistant Medical | DX: I48.91 Unspecified atrial fibrillation (principal); Z79.01 Long term (current) use of anticoagulants ==

== ENCOUNTER 2021-03-19 08:00 | Outpatient (CLI) | payer MEDICARE | END 2021-03-19 23:59 | disposition home or self-care (01) | LOC: LAB.N 08:00 | PROVIDERS: ATTEND Physician Assistant Medical | DX: I48.91 Unspecified atrial fibrillation (principal); Z79.01 Long term (current) use of anticoagulants ==

== ENCOUNTER 2021-03-26 08:00 | Outpatient (CLI) | payer MEDICARE ==
[2021-03-26 13:17] LABS: ALBUMIN 4.1 g/dL (3.2-5.5); ALBUMIN/GLOBULIN RATIO 1.6 (1.0-2.2); ALKALINE PHOSPHATASE 34 IU/L (42-121); ALT ALANINE AMINOTRANSFERASE 15 IU/L (10-60); AST ASPARTATE AMINOTRANSFERASE 16 IU/L (10-42); BILIRUBIN,TOTAL 0.6 mg/dL (0.2-1.0); BUN - BLOOD UREA NITROGEN 8 mg/dL (6-20); CALCIUM 9.1 mg/dL (8.5-10.3); CARBON DIOXIDE - CO2 29 mmol/L (21-32); CHLORIDE 105 mmol/L (101-111); CHOL/HDL RATIO 3.2 (<4.4); CHOLESTEROL 254 mg/dL; CREATININE 0.8 mg/dL (0.4-1.0); GFR - MDRD 71 (>89); GLUCOSE 96 mg/dL (70-100); HDL CHOLESTEROL 80 mg/dL; LDL CHOLESTEROL,CALCULATED 162 mg/dL; POTASSIUM 4.2 mmol/L (3.5-5.0); SODIUM 141 mmol/L (135-145); TOTAL PROTEIN 6.7 g/dL (6.7-8.2); TRIGLYCERIDES 58 mg/dL; VLDL CHOLESTEROL 12 mg/dL
== END 2021-03-26 08:01 | disposition home or self-care (01) ==
LOC: LAB.WCP 08:00
PROVIDERS: ATTEND Physician Assistant Medical
DX: E78.5 Hyperlipidemia, unspecified (principal)
CPT/HCPCS: 36415; 80053; 80061; 83721

== ENCOUNTER 2021-04-23 08:00 | Outpatient (CLI) | payer MEDICARE | END 2021-04-23 23:59 | disposition home or self-care (01) | LOC: LAB.N 08:00 | PROVIDERS: ATTEND Physician Assistant Medical | DX: I48.91 Unspecified atrial fibrillation (principal); Z79.01 Long term (current) use of anticoagulants ==

== ENCOUNTER 2021-06-18 08:00 | Outpatient (CLI) | payer MEDICARE | END 2021-06-18 23:59 | disposition home or self-care (01) | LOC: LAB 08:00 | PROVIDERS: ATTEND Physician Assistant Medical | DX: I48.91 Unspecified atrial fibrillation (principal); Z79.01 Long term (current) use of anticoagulants ==

== ENCOUNTER 2021-07-09 08:00 | Outpatient (CLI) | payer MEDICARE | END 2021-07-09 23:59 | disposition home or self-care (01) | LOC: LAB.N 08:00 | PROVIDERS: ATTEND Physician Assistant Medical | DX: I48.91 Unspecified atrial fibrillation (principal); Z79.01 Long term (current) use of anticoagulants ==

== ENCOUNTER 2021-07-30 09:44 | Day surgery (SDC) | payer MEDICARE ==
[2021-07-30] MEDS ORDERED: LACTATED RINGERS 1,000 ML IV ONE ×2 (09:54→12:18)
[2021-07-30] MEDS ORDERED: PROPOFOL 200 MG/20 ML VIAL IVP ONE ×2 (10:02→11:38)
[2021-07-30] MEDS ORDERED: fentaNYL 100 MCG/2 ML VIAL ONE (10:02)
[2021-07-30] MEDS ORDERED: MIDAZOLAM 2 MG/2 ML VIAL ONE (10:02)
--- NOTE | 2021-07-30 10:19 | ANESTHESIA ---
Pre-Anesthesia VS, & Labs - Diagnosis hx of polyps - Procedure colonoscopy Height: 5 ft 7 in Weight (kg): 58.7 kg Body Mass Index: 20.2 BMI Classification: Healthy weight - NPO >8 hours - Is Patient ?: No Home Medications and Allergies Home Medications: Ambulatory Orders Biotin 500 mcg PO DAILY 07/27/21 Cholecalciferol (Vitamin D3) [Vitamin D3] 125 mcg PO DAILY 07/27/21 Cyanocobalamin (Vitamin B-12) [Vitamin B-12] 1,000 mcg PO DAILY 07/27/21 Magnesium Oxide [Magnesium] 400 mg PO DAILY 07/27/21 Melatonin 3 mg PO QPM 07/27/21 Atorvastatin [Lipitor] 10 mg PO DAILY 08/09/18 Cetirizine [ZyrTEC] 10 mg PO DAILY 08/09/18 Flecainide [Tambocar] 50 - 100 mg PO DAILY MDD 2 08/09/18 Fluticasone [Flonase] 2 sprays GIANNA BID 08/09/18 Levothyroxine [Synthroid] 100 mcg PO QDAC 08/09/18 Warfarin Sodium [Coumadin] 7.5 mg PO .QTUES.QTHUR.QSAT 08/09/18 Warfarin Sodium [Coumadin] 10 mg PO .MON.WED.FRI.SUN 08/09/18 diltiaZEM CD [Cardizem Cd] 180 mg PO DAILY 08/09/18 Biotin 500 mcg PO DAILY 07/27/21 Cholecalciferol (Vitamin D3) [Vitamin D3] 125 mcg PO DAILY 07/27/21 Cyanocobalamin (Vitamin B-12) [Vitamin B-12] 1,000 mcg PO DAILY 07/27/21 Magnesium Oxide [Magnesium] 400 mg PO DAILY 07/27/21 Melatonin 3 mg PO QPM 07/27/21 Allergies/Adverse Reactions: Allergies Allergy/AdvReac Type Severity Reaction Status Date / Time Sulfa (Sulfonamide AdvReac rapid Verified 07/27/21 12:46 Antibiotics) heartbeat Anes History & Medical History - Anesthetic History Anesthesia Complications: reports: No previous complications Family history of Anesthesia Complications: Denies Family history of Malignant Hyperthermia: Denies - Medical History Cardiovascular: reports: Atrial fibrillation, Other Pulmonary: reports: Asthma, COPD, Sleep apnea Gastrointestinal: reports: Colon polyps Urinary: reports: None Musculoskeletal: reports: Osteoarthritis, Osteoporosis, Chronic back pain Endocrine/Autoimmune: reports: HyPOthyroidism Skin: reports: Other Smoking Status: Never smoker - Surgical History General: reports: Colonoscopy, Other Eyes Ears Nose Throat (EENT): reports: Cataracts, Other Exam General: Alert, Oriented x3, Cooperative Dental: Dentures full Upper, Dentures full Lower Mouth Openin Fingerbreadth Neck Mobility: Normal Mallampati classification: I Thyromental Distance: 4-6 cm Respiratory: Lungs clear Cardiovascular: Other (A Fib) Plan Anesthesia Type: Total IV Consent for Procedure(s) Verified and Reviewed: Yes Code Status: Attempt Resuscitation ASA classification: 2-Mild systemic disease Is this case an emergency?: No
--- NOTE | 2021-07-30 11:16 | HISTORY & PHYSICAL EXAMINATION ---
Chief Complaint - Chief Complaint Chief Complaint: History colon polyps and change in bowel habits History of Present Illness - History Obtained From Records Reviewed: yes History obtained from: pt Exam Limitations: none - History of Present Illness HPI Comment/Other: She had 2 serrated adenomas removed in 2018. She had change in bowel habits with more mucous. This has improved. History - Past Medical History Cardiovascular: reports: Atrial fibrillation, Other Respiratory: reports: Asthma, COPD, Sleep apnea Endocrine/Autoimmune: reports: HyPOthyroidism GI: reports: Colon polyps : reports: None HEENT: reports: Chronic vision loss, Chronic sinusitis Psych: reports: None Musculoskeletal: reports: Osteoarthritis, Osteoporosis, Chronic back pain Derm: reports: Other MRSA Hx?: No - Past Surgical History General: reports: Colonoscopy, Other HEENT: reports: Cataracts, Other Meds/Allgy - Home Medications Home Medications: Ambulatory Orders Medication Instructions Recorded Confirmed Atorvastatin [Lipitor] 10 mg PO DAILY 08/09/18 07/29/21 Cetirizine [ZyrTEC] 10 mg PO DAILY 08/09/18 07/29/21 Flecainide [Tambocar] 50 - 100 mg PO DAILY MDD 2 08/09/18 07/29/21 Fluticasone [Flonase] 2 sprays GIANNA BID 08/09/18 07/29/21 Levothyroxine [Synthroid] 100 mcg PO QDAC 08/09/18 07/29/21 Warfarin Sodium [Coumadin] 7.5 mg PO .QTUES.QTHUR.QSAT 08/09/18 07/29/21 Warfarin Sodium [Coumadin] 10 mg PO .MON.WED.FRI.SUN 08/09/18 07/29/21 diltiaZEM CD [Cardizem Cd] 180 mg PO DAILY 08/09/18 07/29/21 Biotin 500 mcg PO DAILY 07/27/21 07/29/21 Cholecalciferol (Vitamin D3) 125 mcg PO DAILY 07/27/21 07/29/21 [Vitamin D3] Cyanocobalamin (Vitamin B-12) 1,000 mcg PO DAILY 07/27/21 07/29/21 [Vitamin B-12] Magnesium Oxide [Magnesium] 400 mg PO DAILY 07/27/21 07/29/21 Melatonin 3 mg PO QPM 07/27/21 07/29/21 - Allergies Allergies/Adverse Reactions: Allergies Allergy/AdvReac Type Severity Reaction Status Date / Time Sulfa (Sulfonamide AdvReac rapid Verified 07/27/21 12:46 Antibiotics) heartbeat Review of Systems - Other Findings Other Findings: 10 pt ros as above otherwise unremarkable Exam - Vital Signs Reviewed Vital Signs: Yes - Physical Exam General Appearance: positive: Alert Eyes Bilateral: positive: PERRL, EOMI ENT: positive: No signs of dehydration Neck: positive: No JVD Respiratory: positive: No respiratory distress, Breath sounds nml Cardiovascular: positive: Irregularly irregular Abdomen: positive: Non-tender, No distention Neurologic/Psychiatric: positive: Oriented x3 Conclusion/Plan - Problem List (1) History of adenomatous polyp of colon Conclusion/Plan: plan surveillance colonoscopy. parq held and consent obtained
[2021-07-30 12:32] VITALS: BP 123/65
--- NOTE | 2021-07-30 14:06 | ANESTHESIA POST OP EVALUATION ---
Anesthesia Post Eval - Post Anesthesia Eval Vitals: Last Vital Signs Temp 36.3 C L 07/30/21 12:32 Pulse 96 07/30/21 12:32 Resp 16 07/30/21 12:32 BP 123/65 07/30/21 12:32 Pulse Ox 99 07/30/21 12:32 CV Function Including HR & BP: Stable Pain Control: Satisfactory Nausea & Vomiting: Negative Mental Status: Baseline Respiratory Status: Airway Patent Hydration Status: Satisfactory Anesthesia Complications: None
== END 2021-07-30 09:45 | disposition home or self-care (01) ==
LOC: SDS 09:44
PROVIDERS: ATTEND Surgery
PROC: 0DBK8ZX Excision of Ascending Colon, Via Natural or Artificial Opening Endoscopic, Diagnostic (ICD-10-PCS; principal; 2021-07-30 11:15)
DX: R19.4 Change in bowel habit (principal); D12.2 Benign neoplasm of ascending colon; J44.9 Chronic obstructive pulmonary disease, unspecified; G47.30 Sleep apnea, unspecified; I48.91 Unspecified atrial fibrillation; Z92.83 Personal history of failed moderate sedation
CPT/HCPCS: 45380; J7120

== ENCOUNTER 2021-08-11 08:00 | Outpatient (CLI) | payer MEDICARE | END 2021-08-11 23:59 | disposition home or self-care (01) | LOC: LAB.N 08:00 | PROVIDERS: ATTEND Physician Assistant Medical | DX: I48.91 Unspecified atrial fibrillation (principal); Z79.01 Long term (current) use of anticoagulants ==

== ENCOUNTER 2021-08-20 07:54 | Outpatient (CLI) | payer MEDICARE ==
[2021-08-20 12:04] LABS: ALBUMIN/GLOBULIN RATIO 1.5 (1.0-2.2); ALKALINE PHOSPHATASE 43 IU/L (42-121); ALT ALANINE AMINOTRANSFERASE 13 IU/L (10-60); AST ASPARTATE AMINOTRANSFERASE 15 IU/L (10-42); BILIRUBIN,TOTAL 0.8 mg/dL (0.2-1.0); BUN - BLOOD UREA NITROGEN 10 mg/dL (6-20); CALCIUM 9.1 mg/dL (8.5-10.3); CARBON DIOXIDE - CO2 29 mmol/L (21-32); CHLORIDE 106 mmol/L (101-111); CHOL/HDL RATIO 2.9 (<4.4); CHOLESTEROL 178 mg/dL; CREATININE 0.8 mg/dL (0.4-1.0); GFR - MDRD 71 (>89); GLUCOSE 96 mg/dL (70-100); HDL CHOLESTEROL 62 mg/dL; POTASSIUM 4.2 mmol/L (3.5-5.0); SODIUM 143 mmol/L (135-145); TOTAL PROTEIN 6.6 g/dL (6.7-8.2); TRIGLYCERIDES 39 mg/dL
[2021-08-20 12:08] LABS: BASOPHILS # (AUTO) 0.1 10^3/uL (0.0-0.1); BASOPHILS % (AUTO) 1.8 %; EOSINOPHILS # (AUTO) 0.2 10^3/uL (0.0-0.7); HCT - HEMATOCRIT 38.1 % (37.0-47.0); HGB - HEMOGLOBIN 12.1 g/dL (12.0-16.0); LYMPHOCYTES % (AUTO) 28.9 %; MEAN CORPUSCULAR HEMOGLOBIN 31.8 pg (27.0-31.0); MEAN CORPUSCULAR HGB CONC 31.8 g/dL (32.0-36.0); MEAN PLATELET VOLUME 11.3 fL (7.9-10.8); MONOCYTES # (AUTO) 0.3 10^3/uL (0.0-1.0); MONOCYTES % (AUTO) 8.5 %; NEUTROPHILS # (AUTO) 1.8 10^3/uL (1.5-6.6); NEUTROPHILS % (AUTO) 53.5 %; PLT - PLATELET COUNT 219 10^3/uL (130-450); RED BLOOD COUNT 3.81 10^6/uL (4.20-5.40); RED CELL DISTRIBUTION WIDTH 14.3 % (12.0-15.0); WHITE BLOOD COUNT 3.4 x10^3/uL (4.8-10.8)
[2021-08-20 12:14] LABS: THYROID STIMULATING HORMONE 2.47 uIU/mL (0.34-5.60)
== END 2021-08-20 23:59 | disposition home or self-care (01) ==
LOC: LAB.WCP 07:54
PROVIDERS: ATTEND Physician Assistant Medical
DX: Z51.81 Encounter for therapeutic drug level monitoring (principal); Z79.899 Other long term (current) drug therapy; E78.5 Hyperlipidemia, unspecified; E03.9 Hypothyroidism, unspecified; J30.9 Allergic rhinitis, unspecified
CPT/HCPCS: 36415; 80053; 80061; 83721; 84443; 85025

== ENCOUNTER 2021-09-17 08:00 | Outpatient (CLI) | payer MEDICARE | END 2021-09-17 23:59 | disposition home or self-care (01) | LOC: LAB.N 08:00 | PROVIDERS: ATTEND Physician Assistant Medical | DX: I48.91 Unspecified atrial fibrillation (principal); Z79.01 Long term (current) use of anticoagulants ==

== ENCOUNTER 2021-10-25 08:00 | Outpatient (CLI) | payer MEDICARE | END 2021-10-25 23:59 | disposition home or self-care (01) | LOC: LAB.F 08:00 | PROVIDERS: ATTEND Physician Assistant Medical | DX: Z79.01 Long term (current) use of anticoagulants (principal); I48.91 Unspecified atrial fibrillation ==

== ENCOUNTER 2021-11-26 08:00 | Outpatient (CLI) | payer MEDICARE | END 2021-11-26 23:59 | disposition home or self-care (01) | LOC: LAB.WCP 08:00 | PROVIDERS: ATTEND Nurse Practitioner Family | DX: Z79.01 Long term (current) use of anticoagulants (principal); I48.91 Unspecified atrial fibrillation ==

== ENCOUNTER 2022-01-05 08:00 | Outpatient (CLI) | payer MEDICARE | END 2022-01-05 23:59 | disposition home or self-care (01) | LOC: LAB.N 08:00 | PROVIDERS: ATTEND Physician Assistant Medical | DX: Z79.01 Long term (current) use of anticoagulants (principal); I48.91 Unspecified atrial fibrillation ==

== ENCOUNTER 2022-01-19 08:00 | Outpatient (CLI) | payer MEDICARE | END 2022-01-19 23:59 | disposition home or self-care (01) | LOC: LAB.N 08:00 | PROVIDERS: ATTEND Physician Assistant Medical | DX: I48.91 Unspecified atrial fibrillation (principal); Z79.01 Long term (current) use of anticoagulants | CPT/HCPCS: 81002 ==

== ENCOUNTER 2022-02-04 08:40 | Outpatient (CLI) | payer MEDICARE | END 2022-02-04 08:41 | disposition home or self-care (01) | LOC: NS 08:40 | PROVIDERS: ATTEND Physician Assistant Medical | DX: Z71.3 Dietary counseling and surveillance (principal); E78.5 Hyperlipidemia, unspecified; M19.049 Primary osteoarthritis, unspecified hand | CPT/HCPCS: 97802 ==

== ENCOUNTER 2022-03-02 08:00 | Outpatient (CLI) | payer MEDICARE | END 2022-03-02 23:59 | disposition home or self-care (01) | LOC: LAB.N 08:00 | PROVIDERS: ATTEND Physician Assistant Medical | DX: I48.91 Unspecified atrial fibrillation (principal); Z79.01 Long term (current) use of anticoagulants ==

== ENCOUNTER 2022-03-23 08:00 | Outpatient (CLI) | payer MEDICARE | END 2022-03-23 23:59 | disposition home or self-care (01) | LOC: LAB.N 08:00 | PROVIDERS: ATTEND Physician Assistant Medical | DX: I48.91 Unspecified atrial fibrillation (principal); Z79.01 Long term (current) use of anticoagulants ==

== ENCOUNTER 2022-04-06 08:00 | Outpatient (CLI) | payer MEDICARE | END 2022-04-06 23:59 | disposition home or self-care (01) | LOC: LAB.N 08:00 | PROVIDERS: ATTEND Physician Assistant Medical | DX: I48.91 Unspecified atrial fibrillation (principal); Z79.01 Long term (current) use of anticoagulants ==

== ENCOUNTER 2022-04-13 08:00 | Outpatient (CLI) | payer MEDICARE | END 2022-04-13 08:01 | disposition home or self-care (01) | LOC: LAB.N 08:00 | PROVIDERS: ATTEND Physician Assistant Medical | DX: I48.91 Unspecified atrial fibrillation (principal); Z79.01 Long term (current) use of anticoagulants ==

== ENCOUNTER 2022-04-14 15:24 | Outpatient (CLI) | payer MEDICARE | END 2022-04-14 15:25 | disposition home or self-care (01) | LOC: LAB.N 15:24 | PROVIDERS: ATTEND Physician Assistant Medical | DX: Z79.01 Long term (current) use of anticoagulants (principal); I48.91 Unspecified atrial fibrillation | CPT/HCPCS: 36416; 85610 ==

== ENCOUNTER → 2022-05-11 | Outpatient (CLI) | payer MEDICARE | LOC: LAB.WCP 08:00 | PROVIDERS: ATTEND Nurse Practitioner | DX: I48.91 Unspecified atrial fibrillation (principal); Z79.01 Long term (current) use of anticoagulants ==

== ENCOUNTER 2022-05-24 09:53 | Outpatient (CLI) | payer MEDICARE ==
--- NOTE | 2022-05-25 08:29 | Mammography Report ---
BILATERAL DIGITAL SCREENING MAMMOGRAM 3D/2D: 05/24/2022 CLINICAL: Routine screening. Comparison is made to exams dated: 10/10/2019 mammogram, 08/29/2017 mammogram, 02/23/2016 mammogram, a nd 09/11/2014 mammogram - [facility]. The tissue of both breasts is heterogeneousl y dense. This may lower the sensitivity of mammography. There are benign vascular calcifications in both breasts. No significant masses, calcifications, or other findings are seen in either breast. There has been no significant interval change. IMPRESSION: BENIGN There is no mammographic evidence of malignancy. A 1 year screening mammogram is recommended. Based on the Tyrer Cuzick model (a risk assessment model) the patients lifetime risk is 5.2% and her 10 year risk is 4.2%. According to the ACR, ACS, and NCCN guidelines, an annual breast MRI exam ramiro g with mammogram is recommended if the patients lifetime risk is 20% or greater. This exam was interpreted at Station ID: [id number]. NOTE: For mammograms, a report in lay terms will be sent to the patient. Approximately 15% of breast malignancies will not be visualized mammographically. In the management of a palpable breast mass, a negative mammogram must not discourage biopsy of a clinically suspicious lesion. Electronically Signed By: Alejandro dejesus/delgado:05/24/2022 14:12:05 ACR BI-RADS Category 2: Benign Finding(s) [id number] PARENCHYMAL PATTERN: (D) - The breast(s) demonstrate(s) heterogeneously dense fibroglandular melanie bella. BI-RADS CATEGORY: (2) - 2 RECOMMENDATION: (ANNUAL) - Recommend routine annual screening mammography. [id number] 1 year screening LATERALITY: (B)
== END 2022-05-24 09:54 | disposition home or self-care (01) ==
LOC: DI 09:53
DX: Z12.31 Encounter for screening mammogram for malignant neoplasm of breast (principal)

== ENCOUNTER 2022-06-08 08:00 | Outpatient (CLI) | payer MEDICARE | END 2022-06-08 23:59 | disposition home or self-care (01) | LOC: LAB.N 08:00 | PROVIDERS: ATTEND Physician Assistant Medical | DX: I48.91 Unspecified atrial fibrillation (principal); Z79.01 Long term (current) use of anticoagulants ==

== ENCOUNTER 2022-08-03 08:00 | Outpatient (CLI) | payer MEDICARE | END 2022-08-03 23:59 | disposition home or self-care (01) | LOC: LAB.N 08:00 | PROVIDERS: ATTEND Physician Assistant Medical | DX: Z79.01 Long term (current) use of anticoagulants (principal); I48.91 Unspecified atrial fibrillation ==

== ENCOUNTER 2022-08-17 08:00 | Outpatient (CLI) | payer MEDICARE | END 2022-08-17 23:59 | disposition home or self-care (01) | LOC: LAB.WCP 08:00 | PROVIDERS: ATTEND Physician Assistant Medical | DX: Z79.01 Long term (current) use of anticoagulants (principal); I48.91 Unspecified atrial fibrillation ==

== ENCOUNTER 2022-09-13 07:21 | Outpatient (CLI) | payer MEDICARE ==
[2022-09-13 12:38] LABS: ALBUMIN 4.2 g/dL (3.2-5.5); ALBUMIN/GLOBULIN RATIO 1.5 (1.0-2.2); ALKALINE PHOSPHATASE 44 IU/L (42-121); ALT ALANINE AMINOTRANSFERASE 18 IU/L (10-60); AST ASPARTATE AMINOTRANSFERASE 16 IU/L (10-42); BILIRUBIN,TOTAL 0.8 mg/dL (0.2-1.0); BUN - BLOOD UREA NITROGEN 16 mg/dL (6-20); CALCIUM 9.2 mg/dL (8.5-10.3); CARBON DIOXIDE - CO2 28 mmol/L (21-32); CHLORIDE 103 mmol/L (101-111); CHOL/HDL RATIO 2.7 (<4.4); CHOLESTEROL 161 mg/dL; CREATININE 0.7 mg/dL (0.4-1.0); GFR - MDRD 82 (>89); GLUCOSE 99 mg/dL (70-100); HDL CHOLESTEROL 60 mg/dL; LDL CHOLESTEROL,CALCULATED 87 mg/dL; LDL/HDL RATIO 1.5 (<4.4); SODIUM 138 mmol/L (135-145); TRIGLYCERIDES 69 mg/dL; VLDL CHOLESTEROL 14 mg/dL
[2022-09-13 12:41] LABS: THYROID STIMULATING HORMONE 0.71 uIU/mL (0.34-5.60)
== END 2022-09-13 07:22 | disposition home or self-care (01) ==
LOC: LAB.N 07:21
PROVIDERS: ATTEND Physician Assistant Medical
DX: E78.5 Hyperlipidemia, unspecified (principal); E03.9 Hypothyroidism, unspecified
CPT/HCPCS: 36415; 80053; 80061; 83721; 84443

== ENCOUNTER 2022-10-11 09:35 | Outpatient (CLI) | payer MEDICARE ==
[2022-10-11 09:51] LABS: BASOPHILS # (AUTO) 0.1 10^3/uL (0.0-0.1); BASOPHILS % (AUTO) 1.1 %; EOSINOPHILS # (AUTO) 0.4 10^3/uL (0.0-0.7); EOSINOPHILS % (AUTO) 7.7 %; HCT - HEMATOCRIT 38.8 % (37.0-47.0); HGB - HEMOGLOBIN 12.8 g/dL (12.0-16.0); LYMPHOCYTES # (AUTO) 1.2 10^3/uL (1.5-3.5); LYMPHOCYTES % (AUTO) 21.8 %; MEAN CORPUSCULAR HEMOGLOBIN 32.2 pg (27.0-31.0); MEAN CORPUSCULAR VOLUME 97.7 fL (81.0-99.0); MEAN PLATELET VOLUME 10.3 fL (7.9-10.8); MONOCYTES # (AUTO) 0.5 10^3/uL (0.0-1.0); NEUTROPHILS # (AUTO) 3.3 10^3/uL (1.5-6.6); NEUTROPHILS % (AUTO) 60.2 %; PLT - PLATELET COUNT 236 10^3/uL (130-450); RED BLOOD COUNT 3.97 10^6/uL (4.20-5.40); RED CELL DISTRIBUTION WIDTH 13.9 % (12.0-15.0); WHITE BLOOD COUNT 5.5 x10^3/uL (4.8-10.8)
[2022-10-11 10:08] LABS: ALBUMIN 4.1 g/dL (3.2-5.5); ALBUMIN/GLOBULIN RATIO 1.6 (1.0-2.2); BILIRUBIN,TOTAL 0.6 mg/dL (0.2-1.0); CREATININE 0.7 mg/dL (0.4-1.0); POTASSIUM 4.7 mmol/L (3.5-5.0); TOTAL PROTEIN 6.6 g/dL (6.7-8.2)
== END 2022-10-11 09:36 | disposition home or self-care (01) ==
LOC: LAB 09:35
PROVIDERS: ATTEND Physician Assistant
DX: B35.1 Tinea unguium (principal)
CPT/HCPCS: 36415; 80053; 85025

== ENCOUNTER → 2022-10-12 | Outpatient (CLI) | payer MEDICARE | LOC: LAB.WCP 08:00 | PROVIDERS: ATTEND Family Medicine | DX: Z79.01 Long term (current) use of anticoagulants (principal); I48.91 Unspecified atrial fibrillation ==

== ENCOUNTER 2022-10-19 08:00 | Outpatient (CLI) | payer MEDICARE | END 2022-10-19 08:01 | disposition home or self-care (01) | LOC: LAB.N 08:00 | PROVIDERS: ATTEND Physician Assistant Medical | DX: Z79.01 Long term (current) use of anticoagulants (principal); I48.91 Unspecified atrial fibrillation ==

== ENCOUNTER → 2022-10-26 | Outpatient (CLI) | payer MEDICARE | LOC: LAB.WCP 08:00 | PROVIDERS: ATTEND Family Medicine | DX: Z79.01 Long term (current) use of anticoagulants (principal); I48.91 Unspecified atrial fibrillation ==

== ENCOUNTER 2022-11-14 11:06 | Outpatient (CLI) | payer MEDICARE ==
[2022-11-14 11:36] LABS: BASOPHILS # (AUTO) 0.1 10^3/uL (0.0-0.1); BASOPHILS % (AUTO) 1.5 %; EOSINOPHILS # (AUTO) 0.2 10^3/uL (0.0-0.7); EOSINOPHILS % (AUTO) 4.4 %; HCT - HEMATOCRIT 39.4 % (37.0-47.0); HGB - HEMOGLOBIN 12.7 g/dL (12.0-16.0); LYMPHOCYTES # (AUTO) 1.2 10^3/uL (1.5-3.5); LYMPHOCYTES % (AUTO) 26.9 %; MEAN CORPUSCULAR HEMOGLOBIN 31.9 pg (27.0-31.0); MEAN CORPUSCULAR HGB CONC 32.2 g/dL (32.0-36.0); MONOCYTES # (AUTO) 0.4 10^3/uL (0.0-1.0); MONOCYTES % (AUTO) 7.9 %; NEUTROPHILS # (AUTO) 2.7 10^3/uL (1.5-6.6); NEUTROPHILS % (AUTO) 59.1 %; PLT - PLATELET COUNT 202 10^3/uL (130-450); RED BLOOD COUNT 3.98 10^6/uL (4.20-5.40); RED CELL DISTRIBUTION WIDTH 13.6 % (12.0-15.0); WHITE BLOOD COUNT 4.6 x10^3/uL (4.8-10.8)
[2022-11-14 11:53] LABS: ALBUMIN 3.9 g/dL (3.2-5.5); ALBUMIN/GLOBULIN RATIO 1.4 (1.0-2.2); BILIRUBIN,TOTAL 0.5 mg/dL (0.2-1.0); CREATININE 0.8 mg/dL (0.4-1.0); POTASSIUM 4.1 mmol/L (3.5-5.0); TOTAL PROTEIN 6.7 g/dL (6.7-8.2)
== END 2022-11-14 11:07 | disposition home or self-care (01) ==
LOC: LAB 11:06
PROVIDERS: ATTEND Physician Assistant
DX: B35.1 Tinea unguium (principal)
CPT/HCPCS: 36415; 80053; 85025

== ENCOUNTER → 2022-11-30 | Outpatient (CLI) | payer MEDICARE | LOC: LAB.WCP 08:00 | PROVIDERS: ATTEND Physician Assistant Medical | DX: Z79.01 Long term (current) use of anticoagulants (principal); I48.91 Unspecified atrial fibrillation ==

== ENCOUNTER 2022-12-28 08:00 | Outpatient (CLI) | payer MEDICARE | END 2022-12-28 23:59 | disposition home or self-care (01) | LOC: LAB.WCP 08:00 | PROVIDERS: ATTEND Family Medicine | DX: Z79.01 Long term (current) use of anticoagulants (principal); I48.91 Unspecified atrial fibrillation ==

== ENCOUNTER 2023-01-04 08:00 | Outpatient (CLI) | payer MEDICARE | END 2023-01-04 23:59 | disposition home or self-care (01) | LOC: LAB.WCP 08:00 | PROVIDERS: ATTEND Family Medicine | DX: Z79.01 Long term (current) use of anticoagulants (principal); I48.91 Unspecified atrial fibrillation ==

== ENCOUNTER 2023-01-11 08:00 | Outpatient (CLI) | payer MEDICARE | END 2023-01-11 23:59 | disposition home or self-care (01) | LOC: LAB.WCP 08:00 | PROVIDERS: ATTEND Family Medicine | DX: Z79.01 Long term (current) use of anticoagulants (principal); I48.91 Unspecified atrial fibrillation ==

== ENCOUNTER 2023-01-18 08:00 | Outpatient (CLI) | payer MEDICARE | END 2023-01-18 23:59 | disposition home or self-care (01) | LOC: LAB.N 08:00 | PROVIDERS: ATTEND Physician Assistant Medical | DX: Z79.01 Long term (current) use of anticoagulants (principal); I48.91 Unspecified atrial fibrillation ==

== ENCOUNTER 2023-01-25 08:00 | Outpatient (CLI) | payer MEDICARE | END 2023-01-25 23:59 | disposition home or self-care (01) | LOC: LAB.WCP 08:00 | PROVIDERS: ATTEND Physician Assistant Medical | DX: Z79.01 Long term (current) use of anticoagulants (principal); I48.91 Unspecified atrial fibrillation ==

== ENCOUNTER 2023-01-30 10:36 | Outpatient (CLI) | payer MEDICARE ==
[2023-01-30 10:44] LABS: BASOPHILS # (AUTO) 0.1 10^3/uL (0.0-0.1); BASOPHILS % (AUTO) 1.6 %; EOSINOPHILS # (AUTO) 0.3 10^3/uL (0.0-0.7); EOSINOPHILS % (AUTO) 5.8 %; HCT - HEMATOCRIT 38.3 % (37.0-47.0); HGB - HEMOGLOBIN 12.2 g/dL (12.0-16.0); LYMPHOCYTES # (AUTO) 1.2 10^3/uL (1.5-3.5); LYMPHOCYTES % (AUTO) 27.6 %; MEAN CORPUSCULAR HEMOGLOBIN 31.4 pg (27.0-31.0); MEAN CORPUSCULAR HGB CONC 31.9 g/dL (32.0-36.0); MEAN CORPUSCULAR VOLUME 98.5 fL (81.0-99.0); MEAN PLATELET VOLUME 10.6 fL (7.9-10.8); MONOCYTES # (AUTO) 0.5 10^3/uL (0.0-1.0); NEUTROPHILS # (AUTO) 2.4 10^3/uL (1.5-6.6); NEUTROPHILS % (AUTO) 53.8 %; PLT - PLATELET COUNT 203 10^3/uL (130-450); RED BLOOD COUNT 3.89 10^6/uL (4.20-5.40); RED CELL DISTRIBUTION WIDTH 14.3 % (12.0-15.0); WHITE BLOOD COUNT 4.5 x10^3/uL (4.8-10.8)
[2023-01-30 11:08] LABS: ALBUMIN 3.8 g/dL (3.2-5.5); BILIRUBIN,DIRECT 0.1 mg/dL (0.1-0.5); BILIRUBIN,TOTAL 0.4 mg/dL (0.2-1.0); TOTAL PROTEIN 6.5 g/dL (6.7-8.2)
== END 2023-01-30 10:37 | disposition home or self-care (01) ==
LOC: LAB 10:36
PROVIDERS: ATTEND Physician Assistant
DX: B35.1 Tinea unguium (principal)
CPT/HCPCS: 36415; 80076; 85025

== ENCOUNTER 2023-02-01 08:00 | Outpatient (CLI) | payer MEDICARE | END 2023-02-01 23:59 | disposition home or self-care (01) | LOC: LAB.N 08:00 | PROVIDERS: ATTEND Physician Assistant Medical | DX: Z79.01 Long term (current) use of anticoagulants (principal); I48.91 Unspecified atrial fibrillation ==

== ENCOUNTER 2023-02-17 08:00 | Outpatient (CLI) | payer MEDICARE | END 2023-02-17 23:59 | disposition home or self-care (01) | LOC: LAB.N 08:00 | PROVIDERS: ATTEND Physician Assistant Medical | DX: Z79.01 Long term (current) use of anticoagulants (principal); I48.91 Unspecified atrial fibrillation ==

== ENCOUNTER 2023-03-01 08:00 | Outpatient (CLI) | payer MEDICARE | END 2023-03-01 23:59 | disposition home or self-care (01) | LOC: LAB.N 08:00 | PROVIDERS: ATTEND Physician Assistant Medical | DX: Z79.01 Long term (current) use of anticoagulants (principal); I48.91 Unspecified atrial fibrillation ==

== ENCOUNTER 2023-03-08 08:00 | Outpatient (CLI) | payer MEDICARE | END 2023-03-08 23:59 | disposition home or self-care (01) | LOC: LAB.N 08:00 | PROVIDERS: ATTEND Physician Assistant Medical | DX: Z79.01 Long term (current) use of anticoagulants (principal); I48.91 Unspecified atrial fibrillation ==

== ENCOUNTER 2023-03-15 08:00 | Outpatient (CLI) | payer MEDICARE | END 2023-03-15 23:59 | disposition home or self-care (01) | LOC: LAB.N 08:00 | PROVIDERS: ATTEND Physician Assistant Medical | DX: Z79.01 Long term (current) use of anticoagulants (principal); I48.91 Unspecified atrial fibrillation ==

== ENCOUNTER 2023-04-19 08:00 | Outpatient (CLI) | payer MEDICARE | END 2023-04-19 23:59 | disposition home or self-care (01) | LOC: LAB.WCP 08:00 | PROVIDERS: ATTEND Family Medicine | DX: Z79.01 Long term (current) use of anticoagulants (principal); I48.91 Unspecified atrial fibrillation ==

== ENCOUNTER 2023-05-17 08:00 | Outpatient (CLI) | payer MEDICARE | END 2023-05-17 23:59 | disposition home or self-care (01) | LOC: LAB.WCP 08:00 | PROVIDERS: ATTEND Family Medicine | DX: Z79.01 Long term (current) use of anticoagulants (principal); I48.91 Unspecified atrial fibrillation ==

== ENCOUNTER 2023-10-27 08:00 | Outpatient (CLI) | payer MEDICARE | END 2023-10-27 23:59 | disposition home or self-care (01) | LOC: LAB.WCP 08:00 | PROVIDERS: ATTEND Physician Assistant Medical | DX: I48.91 Unspecified atrial fibrillation (principal); Z79.01 Long term (current) use of anticoagulants ==

== ENCOUNTER 2023-10-30 07:07 | Outpatient (CLI) | payer MEDICARE ==
[2023-10-30 12:45] LABS: BASOPHILS # (AUTO) 0.1 10^3/uL (0.0-0.1); BASOPHILS % (AUTO) 1.5 %; EOSINOPHILS # (AUTO) 0.3 10^3/uL (0.0-0.7); EOSINOPHILS % (AUTO) 6.9 %; LYMPHOCYTES # (AUTO) 1.1 10^3/uL (1.5-3.5); LYMPHOCYTES % (AUTO) 28.9 %; MEAN CORPUSCULAR HGB CONC 31.6 g/dL (32.0-36.0); MEAN CORPUSCULAR VOLUME 98.2 fL (81.0-99.0); MEAN PLATELET VOLUME 11.6 fL (7.9-10.8); MONOCYTES # (AUTO) 0.4 10^3/uL (0.0-1.0); MONOCYTES % (AUTO) 10.9 %; NEUTROPHILS % (AUTO) 51.5 %; PLT - PLATELET COUNT 224 10^3/uL (130-450); RED BLOOD COUNT 3.87 10^6/uL (4.20-5.40); RED CELL DISTRIBUTION WIDTH 14.6 % (12.0-15.0); WHITE BLOOD COUNT 3.9 x10^3/uL (4.8-10.8)
[2023-10-30 13:11] LABS: ALBUMIN/GLOBULIN RATIO 1.5 (1.0-2.2); ALKALINE PHOSPHATASE 59 IU/L (42-121); ALT ALANINE AMINOTRANSFERASE 9 IU/L (10-60); AST ASPARTATE AMINOTRANSFERASE 12 IU/L (10-42); BILIRUBIN,TOTAL 0.4 mg/dL (0.2-1.0); BUN - BLOOD UREA NITROGEN 17 mg/dL (6-20); CALCIUM 9.3 mg/dL (8.5-10.3); CARBON DIOXIDE - CO2 30 mmol/L (21-32); CHLORIDE 106 mmol/L (101-111); CHOL/HDL RATIO 3.5 (<4.4); CHOLESTEROL 211 mg/dL; CREATININE 0.6 mg/dL (0.6-1.3); GFR - MDRD 98 (>89); GLUCOSE 96 mg/dL (74-104); HDL CHOLESTEROL 61 mg/dL; LDL CHOLESTEROL,CALCULATED 131 mg/dL; LDL/HDL RATIO 2.1 (<4.4); POTASSIUM 4.1 mmol/L (3.5-4.5); SODIUM 140 mmol/L (135-145); TOTAL PROTEIN 6.7 g/dL (6.4-8.9); TRIGLYCERIDES 97 mg/dL (48-352); VLDL CHOLESTEROL 19 mg/dL
[2023-10-30 13:18] LABS: THYROID STIMULATING HORMONE 0.45 uIU/mL (0.34-5.60)
== END 2023-10-30 07:08 | disposition home or self-care (01) ==
LOC: LAB.N 07:07
PROVIDERS: ATTEND Physician Assistant Medical
DX: E78.5 Hyperlipidemia, unspecified (principal); E03.9 Hypothyroidism, unspecified; J44.9 Chronic obstructive pulmonary disease, unspecified
CPT/HCPCS: 36415; 80053; 80061; 83721; 84443; 85025

== ENCOUNTER 2023-11-15 08:00 | Outpatient (CLI) | payer MEDICARE | END 2023-11-15 08:01 | disposition home or self-care (01) | LOC: LAB.N 08:00 | PROVIDERS: ATTEND Physician Assistant Medical | DX: I48.91 Unspecified atrial fibrillation (principal); Z79.01 Long term (current) use of anticoagulants ==

== ENCOUNTER 2023-12-08 08:00 | Outpatient (CLI) | payer MEDICARE | END 2023-12-08 08:01 | disposition home or self-care (01) | LOC: LAB.N 08:00 → LAB.WCP 08:01 | PROVIDERS: ATTEND Physician Assistant Medical | DX: I48.91 Unspecified atrial fibrillation (principal); Z79.01 Long term (current) use of anticoagulants ==

== ENCOUNTER 2024-01-03 07:30 | Outpatient (CLI) | payer MEDICARE | END 2024-01-03 07:45 | disposition home or self-care (01) | LOC: LAB.N 07:30 | PROVIDERS: ATTEND Family Medicine | DX: N39.0 Urinary tract infection, site not specified (principal) | CPT/HCPCS: 87086; 87181 ==

== ENCOUNTER 2024-01-30 07:35 | Outpatient (CLI) | payer MEDICARE ==
[2024-01-30 12:56] LABS: THYROID STIMULATING HORMONE 3.52 uIU/mL (0.34-5.60)
== END 2024-01-30 07:36 | disposition home or self-care (01) ==
LOC: LAB.N 07:35
PROVIDERS: ATTEND Physician Assistant Medical
DX: E03.9 Hypothyroidism, unspecified (principal)
CPT/HCPCS: 36415; 84443

== ENCOUNTER 2024-05-30 07:43 | Outpatient (CLI) | payer MEDICARE ==
[2024-05-30 08:10] LABS: CHOL/HDL RATIO 3.2 (<4.4); CHOLESTEROL 209 mg/dL; HDL CHOLESTEROL 65 mg/dL; LDL CHOLESTEROL,CALCULATED 119 mg/dL; LDL/HDL RATIO 1.8 (<4.4); TRIGLYCERIDES 123 mg/dL; VLDL CHOLESTEROL 25 mg/dL
[2024-05-30 08:21] LABS: THYROID STIMULATING HORMONE 3.75 uIU/mL (0.34-5.60)
== END 2024-05-30 07:44 | disposition home or self-care (01) ==
LOC: LAB 07:43
PROVIDERS: ATTEND Physician Assistant Medical
DX: E78.5 Hyperlipidemia, unspecified (principal); E03.9 Hypothyroidism, unspecified
CPT/HCPCS: 36415; 80061; 83721; 84443

== ENCOUNTER 2024-05-31 08:28 | Outpatient (CLI) | payer MEDICARE ==
--- NOTE | 2024-05-31 17:07 | CT Report ---
PROCEDURE: Sinus INDICATIONS: PANSINUSITIS TECHNIQUE: Noncontrast 3.0 mm axial images acquired from the frontal sinuses to the mid-sella, with coronal and sagittal reformats. For radiation dose reduction, the following was used: automated exposure control , adjustment of mA and/or kV according to patient size. COMPARISON: None. FINDINGS: Image quality: Excellent. Maxillary Sinuses: Scattered minimal areas of mucosal thickening within the maxillary, frontal, scatt ered ethmoid air cells and near complete occlusion of the right sphenoid. No fluid levels. Postsurgic al sinus changes are present on the right. Ostiomeatal Complexes: Ostiomeatal complexes are patent. Miscellaneous: Visualized intra-orbital contents are normal. No day bullosa. No nasal septal d eviation. IMPRESSION: Postsurgical sinus changes. Near-complete occlusion of the right sphenoid sinus. Otherwise, minimal scattered areas of mucosal th ickening without fluid level. Reviewed by: Reema Leroy MD on 05/31/2024 5:05 PM PDT Approved by: Reema Leroy MD on 05/31/2024 5:05 PM PDT Station ID: [id number]
== END 2024-05-31 08:29 | disposition home or self-care (01) ==
LOC: DI 08:28
PROVIDERS: ATTEND Otolaryngology
DX: J30.9 Allergic rhinitis, unspecified (principal); J34.89 Other specified disorders of nose and nasal sinuses; R09.82 Postnasal drip